=== PATIENT | male | born 1975 | race Caucasian/White ===

== ENCOUNTER 2020-01-24 17:16 | Emergency (ER) | payer SELFPAY ==
[2020-01-24] MEDS ORDERED: HYDROmorphone 1 MG/ML Syringe IVPUSH STA (17:50)
[2020-01-24] MEDS ORDERED: Ondansetron 4 MG/2 ML SDV IVPUSH ONE (17:50)
--- NOTE | 2020-01-24 17:58 | EDM.PDOC ---
ED HPI GENERAL MEDICAL PROBLEM - General Chief Complaint: Abdominal Pain Stated Complaint: ABDOMINAL PAIN Time Seen by Provider: 01/24/20 17:37 Source of Information: Reports: Patient, RN Notes Reviewed History Limitations: Reports: No Limitations - History of Present Illness INITIAL COMMENTS - FREE TEXT/NARRATIVE: Patient is a 44-year-old male who presents to the ED for the evaluation of his abdominal pain. Patient notes for the past few days, he has had some pain to his right upper quadrant. He states that the pain is intermittent, and is a stabbing in nature. He states that it feels as if someone was stabbing him with a knife, and at times it shoots through to straight to his back. Patient states that he did vomit 2 times on Monday, but not had any diarrhea, has not had a bowel movement since Monday. Patient notes that he last ate a good meal on Monday, and this was chicken noodle soup he is not really been able to eat much since then. Patient states that really any sort of movement seems to aggravate the pain, and taking a deep breath really aggravates it. He states that the thing he is found that is made it feel better, is a heating pad. He did try some Tylenol yesterday this did not provide much help. Patient denies any fevers or chills, any productive type cough. He is a smoker , roughly [id number] history. He does not use alcohol. He does not use drugs. He does not have a regular care provider and is not on any regular medications. He did have an abdominal surgery for a hernia when he was 15 years old otherwise he has had no further abdominal surgeries. Right Abdomen Pain Score (Numeric/FACES): 7 - Related Data Allergies Allergy/AdvReac Type Severity Reaction Status Date / Time No Known Allergies Allergy Verified 01/24/20 17:35 Home Meds: Home Meds Acetaminophen/HYDROcodone [Mascotte 325-5 MG] 1 tab PO Q6H PRN #12 tablet 01/24/20 [Rx] Ondansetron [Zofran ODT] 4 mg PO Q8H PRN #12 tab.dis 01/24/20 [Rx] Past Medical History - Past Surgical History GI Surgical History: Reports: Hernia, Abdominal Other GI Surgeries/Procedures: repair at age 15 yrs Social & Family History - Tobacco Use Smoking Status *Q: Current Every Day Smoker Years of Tobacco use: 30 Packs/Tins Daily: 1 - Caffeine Use Caffeine Use: Reports: Energy Drinks, Soda - Alcohol Use Alcohol Use History: Yes Alcohol Use in Last Twelve Months: No Alcohol Use Comment: states he quit drinking in 2004 - Recreational Drug Use Recreational Drug Use: No - Living Situation & Occupation Occupation: Employed (works as a class b truck driver) ED ROS GENERAL - Review of Systems Review Of Systems: See Below Constitutional: Reports: Decreased Appetite. Denies: Fever, Chills Respiratory: Denies: Shortness of Breath, Wheezing, Cough, Sputum Cardiovascular: Denies: Chest Pain GI/Abdominal: Reports: Abdominal Pain (RUQ see HPI), Decreased Appetite, Vomiting (2 episodes on Monday). Denies: Constipation, Diarrhea, Hematemesis , Nausea : Denies: Dysuria, Flank Pain, Frequency, Urgency Musculoskeletal: Reports: Back Pain (that radiates from RUQ) ED EXAM, GI/ABD - Physical Exam Exam: See Below Exam Limited By: No Limitations General Appearance: Alert, WD/WN, No Apparent Distress Eyes: Bilateral: Normal Appearance Ears: Normal External Exam Nose: Normal Inspection Throat/Mouth: Normal Inspection, Normal Lips, Normal Teeth, Normal Gums, Normal Oropharynx, Normal Voice, No Airway Compromise Head: Atraumatic, Normocephalic Neck: Normal Inspection Respiratory/Chest: No Respiratory Distress, Lungs Clear, Normal Breath Sounds, No Accessory Muscle Use, Chest Non-Tender Cardiovascular: Normal Peripheral Pulses, Regular Rate, Rhythm, No Murmur GI/Abdominal Exam: Normal Bowel Sounds, Soft, No Distention, No Mass, Tender ( RUQ, Mccracken's sign positive) Back Exam: Normal Inspection, Full Range of Motion Extremities: Normal Inspection, Normal Capillary Refill Neurological: Alert, Oriented, Normal Cognition, No Motor/Sensory Deficits Psychiatric: Normal Affect, Normal Mood Skin Exam: Warm, Dry, Intact, Normal Color, No Rash Course - Vital Signs Last Recorded V/S: Last Vital Signs Temp 99.1 F 01/24/20 17:38 Pulse 74 01/24/20 17:38 Resp 20 01/24/20 17:38 BP 163/103 H 01/24/20 17:38 Pulse Ox 99 01/24/20 17:38 - Orders/Labs/Meds Orders: Active Orders 24 hr Category Date Time Status Peripheral IV Care [RC] . DIRECTED Care 01/24/20 17:52 Ordered Sodium Chloride 0.9% [Normal Saline] 1,000 ml Med 01/24/20 18:00 Ordered IV ASDIRECTED Sodium Chloride 0.9% [Saline Flush] Med 01/24/20 17:52 Ordered 10 ml FLUSH ASDIRECTED PRN Peripheral IV Insertion Adult [OM.PC] Routine Oth 01/24/20 17:52 Ordered Medication Orders Sodium Chloride (Normal Saline) 1,000 mls @ 999 mls/hr IV ASDIRECTED MAGNOLIA Last Admin: 01/24/20 18:24 Dose: 999 mls/hr Sodium Chloride (Saline Flush) 10 ml FLUSH ASDIRECTED PRN PRN Reason: Keep Vein Open Last Admin: 01/24/20 20:10 Dose: 10 ml Admin: 01/24/20 18:15 Dose: 10 ml Labs: Laboratory Tests 01/24/20 01/24/20 01/24/20 Range/Units 18:15 18:15 20:33 WBC 13.31 H (4.23-9.07) K/mm3 RBC 5.34 (4.63-6.08) M/mm3 Hgb 15.4 (13.7-17.5) gm/dl Hct 45.4 (40.1-51.0) % MCV 85.0 (79.0-92.2) fl MCH 28.8 (25.7-32.2) pg MCHC 33.9 (32.2-35.5) g/dl RDW Std Deviation 43.8 (35.1-43.9) fL Plt Count 243 (163-337) K/mm3 MPV 9.4 (9.4-12.3) fl Neutrophils % (Manual) 76 H (40-60) % Band Neutrophils % 1 (0-10) % Lymphocytes % (Manual) 21 (20-40) % Atypical Lymphs % 0 % Monocytes % (Manual) 2 (2-10) % Eosinophils % (Manual) 0 L (0.8-7.0) % Basophils % (Manual) 0 L (0.2-1.2) Platelet Estimate Adequate RBC Morph Comment Normal Sodium 141 (136-145) mEq/L Potassium 3.4 L (3.5-5.1) mEq/L Chloride 102 (98-107) mEq/L Carbon Dioxide 28 (21-32) mEq/L Anion Gap 14.4 (5-15) BUN 13 (7-18) mg/dL Creatinine 1.0 (0.7-1.3) mg/dL Est Cr Clr Drug Dosing 92.77 mL/min Estimated GFR (MDRD) > 60 (>60) mL/min BUN/Creatinine Ratio 13.0 L (14-18) Glucose 100 (74-106) mg/dL Calcium 8.9 (8.5-10.1) mg/dL Total Bilirubin 0.6 (0.2-1.0) mg/dL GGT 20 (15-85) U/L AST 20 (15-37) U/L ALT 21 (16-63) U/L Alkaline Phosphatase 72 (46-116) U/L Total Protein 7.6 (6.4-8.2) g/dl Albumin 4.0 (3.4-5.0) g/dl Globulin 3.6 gm/dL Albumin/Globulin Ratio 1.1 (1-2) Lipase 91 (73-393) U/L Urine Color Yellow (Yellow) Urine Appearance Clear (Clear) Urine pH 6.5 (5.0-8.0) Ur Specific Spencer 1.020 (1.005-1.030) Urine Protein Negative (Negative) Urine Glucose (UA) Negative (Negative) Urine Ketones 2+ H (Negative) Urine Occult Blood Trace-lysed H (Negative) Urine Nitrite Negative (Negative) Urine Bilirubin Negative (Negative) Urine Urobilinogen 1.0 (0.2-1.0) Ur Leukocyte Esterase Negative (Negative) Urine RBC 0-5 (0-5) /hpf Urine WBC 0-5 (0-5) /hpf Ur Squamous Epith Cells 0-5 (0-5) /hpf Urine Bacteria Few (FEW) /hpf Urine Mucus Few (FEW) /hpf Meds: Medications Generic Name Dose Route Start Last Admin Trade Name Freq PRN Reason Stop Dose Admin Sodium Chloride 1,000 mls @ 999 mls/hr 01/24/20 18:00 01/24/20 18:24 Normal Saline IV 999 mls/hr ASDIRECTED MAGNOLIA Administration Sodium Chloride 10 ml 01/24/20 17:52 01/24/20 20:10 Saline Flush FLUSH 10 ml ASDIRECTED PRN Administration Keep Vein Open Discontinued Medications Generic Name Dose Route Start Last Admin Trade Name Sean PRN Reason Stop Dose Admin Diatrizoate Meglum/Diatrizoate Sod 60 ml 01/24/20 19:07 01/24/20 20:10 Gastrografin 37% PO 01/24/20 19:08 60 ml ONETIME ONE Administration Hydromorphone HCl 1 mg 01/24/20 17:50 01/24/20 18:20 Dilaudid IVPUSH 01/24/20 17:51 1 mg ONETIME STA Administration Iopamidol 100 ml 01/24/20 19:07 01/24/20 20:10 Isovue-300 (61%) IVPUSH 01/24/20 19:08 100 ml ONETIME ONE Administration Ondansetron HCl 4 mg 01/24/20 17:50 01/24/20 18:18 Zofran IVPUSH 01/24/20 17:51 4 mg ONETIME ONE Administration - Re-Assessments/Exams Free Text/Narrative Re-Assessment/Exam: 01/24/20 18:00 Patient presents to the ED for the evaluation of his right upper quadrant abdominal pain. He does have a slight fever at time of triage 99.1 F. Have ordered IV to be placed with some fluids, some pain medication, Zofran, abdomen pelvis CT with oral and IV contrast, and other labs to evaluate gallbladder etiology of his pain. 01/24/20 20:[address] has come back, with normal findings appreciated on exam. Patient's white blood cell count is modestly elevated at 13.3, with 76% neutrophils, and 1 band, so a slight left shift. Metabolic panel is okay, potassium slightly low at 3.4. This can be supplemented in his diet. Urinalysis demonstrates no obvious sign of infection at this time. I do believe his pain is of gallbladder etiology, and will refer him to the general surgeon for further evaluation and management. Patient will be given some antinausea medications and pain medications over the weekend and directed to follow-up with general surgery on Monday morning. Departure - Departure Time of Disposition: 21:01 Disposition: Home, Self-Care 01 Condition: Fair Clinical Impression: Colicky RUQ abdominal pain - Discharge Information *PRESCRIPTION DRUG MONITORING PROGRAM REVIEWED*: Yes *COPY OF PRESCRIPTION DRUG MONITORING REPORT IN PATIENT ERWIN: No Prescriptions: Acetaminophen/HYDROcodone [Mascotte 325-5 MG] 1 tab PO Q6H PRN #12 tablet PRN Reason: Pain Ondansetron [Zofran ODT] 4 mg PO Q8H PRN #12 tab.dis PRN Reason: Nausea Instructions: Abdominal Pain, Adult, [id number] Referrals: PCP,None [Primary Care Provider] - Forms: ED Department Discharge, ED Return to Work/School Form Additional Instructions: You have been evaluated in the ED for upper abdominal pain. You did have a CT done in the ER, and this demonstrated no obvious etiology of your pain at this time. However it is likely that your pain originates from the gallbladder due to your exam and history. At this time we are recommending that you have an outpatient gallbladder ultrasound and HIDA scan performed for further evaluation. You are being referred to general surgery to have these tests ordered and for further evaluation please call [phone] for [facility], or [phone] for general surgery at [facility]. You have received IV fluid, antinausea medications and pain medication in the ER at today's visit. Over the next 24-48 hours please try to limit diet to clear liquids and advance as tolerate to a bland diet to alleviate symptoms of nausea/vomiting. Please use the Zofran every 8 hours as needed for nausea. You were given a prescription for a strong pain medication, hydrocodone/acetaminophen 5/325, please take 1 tab every 6 hours as needed for pain not relieved by Tylenol or ibuprofen alone. Please note this medication does contain Tylenol in it, so do not take more than 4000 mg in a 24-hour time span. These medications can be addictive, so please take as few as possible to achieve adequate pain control. These meds can also be quite constipating, recommend that you increase your oral fluid intake and take a stool softener like MiraLAX while taking these medications. Do not drive while taking this medication. Recommend you take 500 mg Tylenol or 600 mg ibuprofen during the day, or if you have to work. Do not exceed 3200 mg ibuprofen in a 24-hour time span. Please return to the ED if your symptoms should change or worsen. Sepsis Event Note - Evaluation Sepsis Screening Result: No Definite Risk - Focused Exam Vital Signs: Vital Signs Temp Pulse Resp BP Pulse Ox 01/24/20 17:38 99.1 F 74 20 163/103 H 99 Date Exam was Performed: 01/24/20 Time Exam was Performed: 21:13 - My Orders Last 24 Hours: My Active Orders 01/24/20 17:52 Peripheral IV Care [RC] . DIRECTED Sodium Chloride 0.9% [Saline Flush] 10 ml FLUSH ASDIRECTED PRN Peripheral IV Insertion Adult [OM.PC] Routine 01/24/20 18:00 Sodium Chloride 0.9% [Normal Saline] 1,000 ml IV ASDIRECTED - Assessment/Plan Last 24 Hours: My Active Orders 01/24/20 17:52 Peripheral IV Care [RC] . DIRECTED Sodium Chloride 0.9% [Saline Flush] 10 ml FLUSH ASDIRECTED PRN Peripheral IV Insertion Adult [OM.PC] Routine 01/24/20 18:00 Sodium Chloride 0.9% [Normal Saline] 1,000 ml IV ASDIRECTED
[2020-01-24] MEDS ORDERED: Sodium Chloride 0.9% 1,000 ML IV SCH (18:00)
[2020-01-24] MEDS: Sodium Chloride 0.9% 10 ML Syringe FLUSH PRN ×2 (18:15→20:10)
[2020-01-24] MEDS ORDERED: Iopamidol 612 MG/ML 100 ML Bottle IVPUSH ONE (19:07)
[2020-01-24] MEDS ORDERED: Diatrizoate Meglumine/Diatrizoate Sodium 37% 120 ML Bottle PO ONE (19:07)
--- NOTE | 2020-01-24 20:33 | CT ---
CT abdomen and pelvis Technique: Multiple axial sections were obtained from above the dome of the diaphragm inferiorly through the pubic symphysis. Intravenous and oral contrast was utilized. Comparison: No prior abdominal imaging is available. Findings: Visualized lung bases show nothing acute. Liver contains no focal parenchymal abnormality. Spleen appears within normal limits. Adrenal glands show no nodule. Kidneys show symmetric contrast enhancement without hydronephrosis or mass. Pancreas appears within normal limits. Gallbladder contains no calcified gallstones. Aorta shows atherosclerotic change without aneurysm. No retroperitoneal adenopathy or mesenteric abnormalities are seen. Appendix is felt to be visualized and is normal in size. No free fluid or inflammatory change is appreciated. Bone window settings were reviewed which appear within normal limits for the patient's age. No acute osseous finding is appreciated. Impression: 1. Normal findings as noted above. 2. Nothing acute is appreciated on CT study of the abdomen and pelvis. Diagnostic code #1 Study was dictated in MDT
== END 2020-01-24 21:28 | disposition home or self-care (01) ==
LOC: JD.ED 17:16
DX: R10.84 Generalized abdominal pain (principal); R10.11 Right upper quadrant pain; F17.210 Nicotine dependence, cigarettes, uncomplicated; Z90.49 Acquired absence of other specified parts of digestive tract
CPT/HCPCS: 36415; 74177; 80053; 81001; 82977; 83690; 85007; 85027; 96361; 96374; 96375; 99284; J1170; J2405; J7030; Q9963; Q9967

== ENCOUNTER 2020-06-14 22:52 | Emergency (ER) | payer SELFPAY ==
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
[2020-06-15] MEDS ORDERED: Diphtheria,Pertussis(Acell),Tetanus Vaccine 0.5 ML Syringe IM ONE (00:14)
[2020-06-15] MEDS ORDERED: Lidocaine 1% 10 ML MDV INJECT ONE (00:14)
== END 2020-06-15 01:20 | disposition home or self-care (01) ==
LOC: JD.ED 22:52
DX: S01.511A Laceration without foreign body of lip, initial encounter (principal); S09.90XA Unspecified injury of head, initial encounter; F17.210 Nicotine dependence, cigarettes, uncomplicated; Z23 Encounter for immunization; Y00.XXXA Assault by blunt object, initial encounter
CPT/HCPCS: 12011; 90471; 90715; 99282; J2001